=== PATIENT | male | born 1955 | race Caucasian/White ===

== ENCOUNTER 2018-05-05 05:59 | Emergency (ER) | payer BC ==
--- NOTE | 2018-05-05 07:17 | ER Document Report ---
ED General - General Chief Complaint: Probable Seizure Stated Complaint: CHEST PAIN Time Seen by Provider: 05/05/18 06:28 TRAVEL OUTSIDE OF THE [place] IN LAST 30 DAYS: No - HPI Patient complains to provider of: chest pain Onset: Other - This 62-year-old with complex past medical history that presents for evaluation of chest pain which he awoke from sleep with this morning around 4 AM, they subsequently called for EMS to transport him to the hospital, his notes that he did exert himself extensively yesterday attempting to clear brush from his yard. They deny any diaphoresis, nausea, emesis, diarrhea, constipation dysuria recent illnesses. No history of MA in the past. - Related Data Allergies/Adverse Reactions: aspirin [Aspirin] Allergy (Verified 10/13/15 12:31) Sulfa (Sulfonamide Antibiotics) Allergy (Verified 10/13/15 12:31) Past Medical History - General Information source: Patient, Parent - Social History Smoking Status: Unknown if Ever Smoked Family History: Reviewed & Not Pertinent Patient has suicidal ideation: No Patient has homicidal ideation: No - Past Medical History Cardiac Medical History: Reports: Hx Hypercholesterolemia, Hx Hypertension Pulmonary Medical History: Reports: Hx Asthma, Hx COPD Endocrine Medical History: Reports: Hx Hypothyroidism Renal/ Medical History: Denies: Hx Peritoneal Dialysis GI Medical History: Reports: Hx Ulcer - chronic back pain Psychiatric Medical History: Reports: Hx Depression Past Surgical History: Reports: Hx Gastric Bypass Surgery, Hx Orthopedic Surgery - Cervical fusion, knee surgery Review of Systems - Review of Systems -: Yes All other systems reviewed and negative Physical Exam - Vital signs Vitals: Temp Pulse Resp BP Pulse Ox 98.2 F 77 17 143/78 H 98 05/05/18 05:59 05/05/18 05:59 05/05/18 05:59 05/05/18 05:59 05/05/18 05:59 - General General appearance: Appears well In distress: None - HEENT Head: Normocephalic Eyes: Normal Conjunctiva: Normal Cornea: Normal Extraocular movements intact: Yes Eyelashes: Normal Pupils: PERRL - Respiratory Respiratory status: No respiratory distress Chest status: Tender - Tender along the right side of the chest Breath sounds: Normal Chest palpation: Normal - Cardiovascular Rhythm: Regular Heart sounds: Normal auscultation Murmur: No - Abdominal Inspection: Normal Distension: No distension Tenderness: Nontender - Back Back: Normal - Extremities General upper extremity: Normal inspection, Nontender, Normal ROM, Normal strength General lower extremity: Normal inspection, Nontender, Normal ROM, Normal strength - Neurological Neuro grossly intact: Yes Cognition: Normal Orientation: AAOx4 [place] Coma Scale Eye Opening: Spontaneous [place] Coma Scale Verbal: Oriented Adnrews Coma Scale Motor: Obeys Commands [place] Coma Scale Total: 15 Speech: Normal Cranial nerves: Normal Cerebellar coordination: Normal Motor strength normal: LUE, RUE, LLE, RLE - Psychological Associated symptoms: Normal affect Course - Re-evaluation Re-evalutation: 05/05/18 07:16 This 62-year-old man presents for atypical chest pain, at this time he is somewhat somnolent as a result of having received Versed IM from EMS personnel as a result of a pseudoseizure which he suffered while on route. His story is atypical, he has limited risk factors, his EKG is unchanged from previous, will obtain troponins 2 placed on monitoring tech obtain chest x-ray and basic labs. Plan for reassessment as necessary. Patient with 2 negative troponins, chest pain-free at this time, responded well without any intervention. We will plan for this patient undergo discharge with return precautions and encouraged follow-up with his primary care physician as currently this gives him a heart score of 2. Patient be discharged with return precautions. - Vital Signs Vital signs: Temp Pulse Resp BP Pulse Ox 98.2 F 77 21 H 123/88 H 93 05/05/18 05:59 05/05/18 05:59 05/05/18 13:00 05/05/18 12:02 05/05/18 13:00 - Laboratory Result Diagrams: 05/05/18 10:29 05/05/18 08:30 Laboratory results interpreted by me: 05/05/18 08:30 Direct Bilirubin 0.5 H Discharge - Discharge Clinical Impression: Chest pain Qualifiers: Chest pain type: unspecified Qualified Code(s): R07.9 - Chest pain, unspecified Condition: Good Disposition: HOME, SELF-CARE Instructions: Chest Pain of Unclear Cause ([facility]), Seizure, Known Epileptic ([facility]) Additional Instructions: You were seen today in the emergency department for your chest pain. You had evaluation including a chest x-ray, blood tests, none of which showed why you are having chest pain. Your EKG was the same as previously. 2 markers for heart damage were obtained neither of which showed any damage to your heart. If you have worsening chest pain or shortness of breath you should return to the emergency room as it may be a more serious condition you should otherwise call your primary physician for a follow-up this week. Referrals: NESTOR BAUTISTA PA [NO LOCAL MD] - Follow up as needed
--- NOTE | 2018-05-05 08:02 | RADIOLOGY REPORT (SQ) ---
EXAM DESCRIPTION: X-ray two view chest CLINICAL HISTORY: 62 years Male, chest pain COMPARISON: Two-view chest performed on 10/13/2015. TECHNIQUE: PA and Lateral views of the chest performed on 05/05/2018 at 7:45 AM FINDINGS: The lungs are well expanded and are clear. The costophrenic sulci are clear. There is no evidence of a pneumothorax. The cardiac silhouette is normal in size. The mediastinal contours are normal. No acute osseous abnormalities are identified. There are remote postsurgical changes of the lower cervical spine. No focal soft tissue abnormalities are identified. IMPRESSION: No evidence of acute intrathoracic disease. No significant change since the prior study.
[2018-05-05 09:34] LABS: ALANINE AMINOTRANSFERASE 29 U/L (21-72); ALBUMIN 3.9 g/dL (3.5-5.0); ALKALINE PHOSPHATASE 78 U/L (38-126); ANION GAP 9 (5-19); ASPARTATE AMINO TRANSFERASE 34 U/L (17-59); BILIRUBIN,DIRECT 0.5 mg/dL (0.0-0.4); BILIRUBIN,TOTAL 0.7 mg/dL (0.2-1.3); BLOOD UREA NITROGEN 17 mg/dL (7-20); CARBON DIOXIDE 25 mmol/L (22-30); CHLORIDE 105 mmol/L (98-107); CREATINE KINASE 156 U/L (55-170); GLUCOSE 106 mg/dL (75-110); POTASSIUM 3.9 mmol/L (3.6-5.0); SODIUM 138.8 mmol/L (137-145); TOTAL PROTEIN 6.8 g/dL (6.3-8.2)
[2018-05-05 09:45] LABS: TROPONIN I < 0.012 ng/mL
[2018-05-05 10:45] LABS: ABSOLUTE EOSINOPHILS # (AUTO) 0.1 10^3/uL (0.0-0.6); ABSOLUTE LYMPHOCYTES (AUTO) 1.7 10^3/uL (0.5-4.7); ABSOLUTE MONOCYTES (AUTO) 0.6 10^3/uL (0.1-1.4); ABSOLUTE NEUT (AUTO) 3.2 10^3/uL (1.7-8.2); BASOPHILS % (AUTO) 0.5 % (0-2); EOSINOPHILS % (AUTO) 1.5 % (0-6); HEMATOCRIT 39.4 % (37.9-51.0); HEMOGLOBIN 13.5 g/dL (13.5-17.0); MEAN CORPUSCULAR HEMOGLOBIN 29.8 pg (27.0-33.4); MEAN CORPUSCULAR HGB CONC 34.3 g/dL (32.0-36.0); MEAN CORPUSCULAR VOLUME 87 fl (80-97); MONOCYTES % (AUTO) 10.1 % (3-13); RED BLOOD COUNT 4.53 10^6/uL (4.35-5.55); RED CELL DISTRIBUTION WIDTH 12.5 % (11.5-14.0); SEGMENTED NEUTROPHILS % (AUTO) 57.9 % (42-78); TOTAL CELLS COUNTED % (AUTO) 100 %; WHITE BLOOD COUNT 5.5 10^3/uL (4.0-10.5)
[2018-05-05 10:46] LABS: PLATELET COUNT 208 10^3/uL (150-450)
[2018-05-05 14:00] VITALS: BP 123/88
--- NOTE | 2018-05-05 15:31 | EKG REPORT ---
SEVERITY:- BORDERLINE ECG - SINUS RHYTHM BORDERLINE T ABNORMALITIES, ANTERIOR LEADS : Confirmed by: Virginia Watson MD 05-May-2018 15:30:22
== END 2018-05-05 14:00 | disposition home or self-care (01) ==
LOC: ER 05:59
DX: R07.89 Other chest pain (principal); F44.5 Conversion disorder with seizures or convulsions; I10 Essential (primary) hypertension; J44.9 Chronic obstructive pulmonary disease, unspecified; Z88.6 Allergy status to analgesic agent; Z88.2 Allergy status to sulfonamides; Z98.84 Bariatric surgery status
CPT/HCPCS: 36415; 71046; 80053; 82550; 82553; 84484; 85025; 93005; 93010; 99285

== ENCOUNTER → 2019-09-08 | Day surgery (SDC) | payer OTHER, BC ==
[~2019-09-08] MED LIST: CHONDR SU A NA/HYALUR INTRAOC KIT (SURGICARE) ONE; EPINEPHRINE INJ/PF 1 MG/1 ML AMPULE ONE; FENTANYL CITRATE INJ/PF 100 MCG/2 ML AMPUL ONE; KETOROLAC TROMETHAMINE 0.45% 4 DROP/0.4 ML DROPERETTE OS PRN; LIDOCAINE 1%/PHENYLEPHRINE 1.5% 1 ML VIAL ONE; LIDOCAINE 2% INJ-PF (100 MG/5 ML) SYRINGE ONE; MIDAZOLAM 2 MG/2 ML INJ ONE; ONDANSETRON HCL INJ/PF 4 MG/2 ML SDV ONE
[2019-09-08] MEDS: CYCLOPENTOLATE 0.2%/PHENYLEPHRINE 1% OPH SOLN 2 ML OS PRN ×3 (08:42→09:03)
[2019-09-08] MEDS: TETRACAINE HCL 0.5% OPH SOLN 4 ML OS PRN ×3 (08:42→09:28)
[2019-09-08] MEDS: BESIFLOXACIN HCL 0.6% OPH SUSP 5 ML BOTTLE OS PRN ×4 (08:42→09:50)
[2019-09-08] MEDS: TROPICAMIDE 1% OPH SOLN 15 ML OS PRN ×3 (08:42→09:03)
[2019-09-08] MEDS: DORZOLAMIDE HCL 2%/TIMOLOL MALEAT 0.5% OPH SOLN 10 ML OS PRN ×2 (09:50)
--- NOTE | 2019-09-08 15:07 | Operative Report ---
Operative Report-[facility] Operative Report: DATE OF SURGERY: September 08, 2019 PREOPERATIVE DIAGNOSIS: NUCLEAR CATARACT, LEFT EYE. POSTOPERATIVE DIAGNOSIS: NUCLEAR CATARACT, LEFT EYE. PROCEDURE PERFORMED: PHACOEMULSIFICATION WITH POSTERIOR CHAMBER INTRAOCULAR LENS IMPLANT, LEFT EYE. SURGEON: Car Alaniz DO MEDICATIONS AND ANESTHESIA: Versed: IV Versed Tetracaine drops: 1 to 2 drops given as needed COMPLICATION: [None] INDICATIONS FOR SURGERY: Medical necessity: Best corrected visual acuity worse than 20/40 secondary to cataracts with impairment of ability to carry out needs or desired activities, blurred vision, visual distortion, reduced contrast sensitivity and/or glare with association functional impairment and supporting documentation/testing, and cataracts causing symptomatic impairment of visual functions not corrected with tolerable changes in glasses or contact lenses interfering with activities of daily life. PROCEDURE: Consent: The risks, benefits and alternatives of this procedures was discussed with the patient. The patient read and signed the consent forms, was identified and was seated in the exam chair. IOL: MX 60 E IOL Diopters: 17.0 Phacoemulsification with posterior chamber intraocular lens implant: The face was prepped with 5% povidone iodine solution, and a few drops of 5% povidone iodine solution was instilled into the inferior fornix. A non-fenestrated drape was placed over the eye and the lids were parted with the speculum. A paracentesis was made with a 15 degree blade, and 1% lidocaine MPF followed by viscoelastic was injected into the anterior chamber. A 2.4 mm metal micro- keratome was used to create a temporal clear corneal incision. A circular anterior capsulorrhexis was created, followed by hydro-dissection and hydro- delineation. The phacoemulsification hand piece was inserted and the nucleus was removed with the Phaco chop technique. The irrigation-aspiration hand piece was used to remove the residual cortex, and vacuum the posterior capsule. The capsular bag was inflated and viscoelastic and the above-mentioned IOL was injected into the eye with care to insert both leaning and trailing haptics in the capsular bag. The irrigation/aspiration hand piece was reinserted to remove residual viscoelastic from the capsular bag and anterior chamber. The corneal incision was hydrated, and anterior chamber was inflated with sterile BSS via the paracentesis site, and found to be watertight. Postop medication:1 drop of prednisolone into operative by followed by 1 drop of Cosopt into operative eye followed by 1 drop of Besivance intraoperative by Other: []
== END ==
LOC: SC 07:55
PROVIDERS: ATTEND Ophthalmology
DX: H25.12 Age-related nuclear cataract, left eye (principal); H40.1123 Primary open-angle glaucoma, left eye, severe stage; J45.909 Unspecified asthma, uncomplicated; I10 Essential (primary) hypertension; E03.9 Hypothyroidism, unspecified; G40.909 Epilepsy, unspecified, not intractable, without status epilepticus; Z79.51 Long term (current) use of inhaled steroids; Z79.899 Other long term (current) drug therapy; K21.9 Gastro-esophageal reflux disease without esophagitis; E66.9 Obesity, unspecified; Z88.2 Allergy status to sulfonamides; G47.30 Sleep apnea, unspecified
CPT/HCPCS: 66984; V2632; J2250; J3490 ×2; J0171; J3010; J2001; J2405; J2370; 142

== ENCOUNTER 2019-09-22 09:13 | Day surgery (SDC) | payer OTHER, BC ==
[~2019-09-22 09:13] MED LIST changes: -CHONDR SU A NA/HYALUR INTRAOC KIT (SURGICARE) ONE; +DORZOLAMIDE HCL 2%/TIMOLOL MALEAT 0.5% OPH SOLN 10 ML OD PRN; -EPINEPHRINE INJ/PF 1 MG/1 ML AMPULE ONE; -FENTANYL CITRATE INJ/PF 100 MCG/2 ML AMPUL ONE; +KETOROLAC TROMETHAMINE 0.45% 4 DROP/0.4 ML DROPERETTE OD PRN; -KETOROLAC TROMETHAMINE 0.45% 4 DROP/0.4 ML DROPERETTE OS PRN; -LIDOCAINE 1%/PHENYLEPHRINE 1.5% 1 ML VIAL ONE; -LIDOCAINE 2% INJ-PF (100 MG/5 ML) SYRINGE ONE; -MIDAZOLAM 2 MG/2 ML INJ ONE; -ONDANSETRON HCL INJ/PF 4 MG/2 ML SDV ONE
[2019-09-22] MEDS ORDERED: ONDANSETRON HCL INJ/PF 4 MG/2 ML SDV ONE (10:08)
[2019-09-22] MEDS ORDERED: MIDAZOLAM 2 MG/2 ML INJ ONE (10:08)
[2019-09-22] MEDS ORDERED: FENTANYL CITRATE INJ/PF 100 MCG/2 ML AMPUL ONE (10:08)
[2019-09-22] MEDS: BESIFLOXACIN HCL 0.6% OPH SUSP 5 ML BOTTLE OD PRN ×3 (10:30→11:44)
[2019-09-22] MEDS: CYCLOPENTOLATE 0.2%/PHENYLEPHRINE 1% OPH SOLN 2 ML OD PRN ×3 (10:30→10:50)
[2019-09-22] MEDS: TROPICAMIDE 1% OPH SOLN 15 ML OD PRN ×3 (10:30→10:50)
[2019-09-22] MEDS: TETRACAINE HCL 0.5% OPH SOLN 4 ML OD PRN ×4 (10:31→11:16)
[2019-09-22] MEDS: EPINEPHRINE INJ/PF 1 MG/1 ML AMPULE ONE ×2 (11:27)
[2019-09-22] MEDS: CHONDR SU A NA/HYALUR INTRAOC KIT (SURGICARE) ONE ×2 (11:27)
[2019-09-22] MEDS: LIDOCAINE 1%/PHENYLEPHRINE 1.5% 1 ML VIAL ONE ×2 (11:27)
[2019-09-22] MEDS ORDERED: CHONDR SU A NA/HYALUR SOD 0.5 ML DISP.SYRIN ONE (15:13)
--- NOTE | 2019-09-22 15:26 | Operative Report ---
Operative Report-[facility] Operative Report: See scanned report
== END 2019-09-22 12:40 | disposition home or self-care (01) ==
LOC: SC 09:13
PROVIDERS: ATTEND Ophthalmology
DX: H25.11 Age-related nuclear cataract, right eye (principal); H40.1111 Primary open-angle glaucoma, right eye, mild stage; Z98.42 Cataract extraction status, left eye; Z79.51 Long term (current) use of inhaled steroids; Z79.899 Other long term (current) drug therapy; J45.909 Unspecified asthma, uncomplicated; I10 Essential (primary) hypertension; E03.9 Hypothyroidism, unspecified; G40.909 Epilepsy, unspecified, not intractable, without status epilepticus
CPT/HCPCS: 0191T; 66984; 142; C1783; J0171; J2250; J2405; J3010; J3490; V2632

== ENCOUNTER 2020-02-03 11:21 | Emergency (ER) | payer OTHER, BC ==
--- NOTE | 2020-02-03 11:50 | ER Document Report ---
ED Medical Screen (RME) - General Chief Complaint: Flank Pain Stated Complaint: FLANK PAIN Time Seen by Provider: 02/03/20 11:43 Primary Care Provider: KEMI COOMBS NP [Primary Care Provider] - Follow up as needed Notes: Patient is a 64-year-old male who presents to the emergency department with a chief complaint of right lateral mid abdominal pain. Patient states that his symptoms started yesterday. States that he took his home pain medication at home, which helped a little bit, but states that it continues to hurt. Patient also notes that he fell out of bed 4 days ago. States that his bed is rather high. He also hit his head and ended up vomiting after he hitting his head. Exam: Tender mid lateral abdomen. Exam limited due to patient sitting position. I have greeted and performed a rapid initial assessment of this patient. A comprehensive ED assessment and evaluation of the patient, analysis of test results and completion of medical decision making process will be conducted by an additional ED providers. TRAVEL OUTSIDE OF THE [place] IN LAST 30 DAYS: No - Related Data Allergies/Adverse Reactions: aspirin [Aspirin] Allergy (Verified 09/22/19 10:36) Sulfa (Sulfonamide Antibiotics) Allergy (Verified 09/22/19 10:36) Past Medical History - Past Medical History Cardiac Medical History: Reports: Hx Hypercholesterolemia, Hx Hypertension Denies: Hx Heart Attack Pulmonary Medical History: Reports: Hx Asthma, Hx COPD Neurological Medical History: Reports: Hx Seizures. Denies: Hx Cerebrovascular Accident Endocrine Medical History: Reports: Hx Hypothyroidism Renal/ Medical History: Denies: Hx Peritoneal Dialysis GI Medical History: Reports: Hx Hiatal Hernia, Hx Ulcer - BLEEDING ULCER . Denies: Hx Hepatitis Psychiatric Medical History: Reports: Hx Depression Infectious Medical History: Denies: Hx Hepatitis Past Surgical History: Reports: Hx Gastric Bypass Surgery, Hx Orthopedic Surgery - Cervical fusion, knee surgery. Denies: Hx Open Heart Surgery, Hx Pacemaker Physical Exam - Vital signs Vitals: Temp Pulse Resp BP Pulse Ox 97.8 F 87 22 H 148/86 H 96 02/03/20 11:28 02/03/20 11:28 02/03/20 11:28 02/03/20 11:28 02/03/20 11:28 Course - Vital Signs Vital signs: Temp Pulse Resp BP Pulse Ox 97.8 F 87 22 H 148/86 H 96 02/03/20 11:28 02/03/20 11:28 02/03/20 11:28 02/03/20 11:28 02/03/20 11:28 Doctor's Discharge - Discharge Referrals: KEMI COOMBS [employer] [Primary Care Provider] - Follow up as needed
[2020-02-03 12:21] LABS: ABSOLUTE EOSINOPHILS # (AUTO) 0.1 10^3/uL (0.0-0.6); ABSOLUTE LYMPHOCYTES (AUTO) 2.5 10^3/uL (0.5-4.7); ABSOLUTE NEUT (AUTO) 5.3 10^3/uL (1.7-8.2); BASOPHILS % (AUTO) 0.4 % (0-2); EOSINOPHILS % (AUTO) 1.1 % (0-6); HEMATOCRIT 40.1 % (37.9-51.0); HEMOGLOBIN 14.1 g/dL (13.5-17.0); LYMPHOCYTES % (AUTO) 27.7 % (13-45); MEAN CORPUSCULAR HEMOGLOBIN 30.6 pg (27.0-33.4); MEAN CORPUSCULAR HGB CONC 35.1 g/dL (32.0-36.0); MEAN CORPUSCULAR VOLUME 87 fl (80-97); PLATELET COUNT 218 10^3/uL (150-450); RED BLOOD COUNT 4.59 10^6/uL (4.35-5.55); RED CELL DISTRIBUTION WIDTH 13.4 % (11.5-14.0); SEGMENTED NEUTROPHILS % (AUTO) 59.8 % (42-78); TOTAL CELLS COUNTED % (AUTO) 100 %; WHITE BLOOD COUNT 8.9 10^3/uL (4.0-10.5)
[2020-02-03 12:40] LABS: ALBUMIN 4.5 g/dL (3.5-5.0); ALKALINE PHOSPHATASE 128 U/L (38-126); ANION GAP 8 (5-19); ASPARTATE AMINO TRANSFERASE 127 U/L (17-59); BILIRUBIN,DIRECT 0.1 mg/dL (0.0-0.4); BILIRUBIN,TOTAL 0.5 mg/dL (0.2-1.3); BLOOD UREA NITROGEN 12 mg/dL (7-20); CALCIUM 9.7 mg/dL (8.4-10.2); CARBON DIOXIDE 30 mmol/L (22-30); CHLORIDE 96 mmol/L (98-107); GLUCOSE 98 mg/dL (75-110); POTASSIUM 4.1 mmol/L (3.6-5.0); TOTAL PROTEIN 7.7 g/dL (6.3-8.2)
[2020-02-03 13:25] LABS: APPEARANCE,URINE CLOUDY; BILIRUBIN,URINE NEGATIVE (NEGATIVE); CALCIUM OXALATE CRYSTALS,URINE TOO NUMEROUS TO CNT /HPF; GLUCOSE, URINE NEGATIVE (NEGATIVE); KETONES,URINE TRACE mg/dL (NEGATIVE); LEUKOCYTE ESTERASE,URINE NEGATIVE (NEGATIVE); NITRITE,URINE NEGATIVE (NEGATIVE); PROTEIN,URINE NEGATIVE (NEGATIVE); URINE SPECIFIC GRAVITY 1.019
[2020-02-03 13:26] LABS: COLOR,URINE DARK YELLOW
--- NOTE | 2020-02-03 13:42 | RADIOLOGY REPORT (SQ) ---
EXAM DESCRIPTION: CT HEAD WITHOUT IMAGES COMPLETED DATE/TIME: 02/03/2020 1:30 pm REASON FOR STUDY: fall out of bed, then vomited COMPARISON: None. TECHNIQUE: Axial images acquired through the brain without intravenous contrast. Images reviewed wi th bone, brain and subdural windows. Additional sagittal and coronal reconstructions were generated. Images stored on PACS. All CT scanners at this facility use dose modulation, iterative reconstruction, and/or weight based d osing when appropriate to reduce radiation dose to as low as reasonably achievable (ALARA). [facility]: Dose Right [facility]: CareDose [facility]: Dose Right [facility]: Teradose 4D [facility]: [email or web address] RADIATION DOSE: CT Rad equipment meets quality standard of care and radiation dose reduction techniq ues were employed. CTDIvol: 53.2 mGy. DLP: 1070 mGy-cm. mGy. LIMITATIONS: None. FINDINGS: VENTRICLES: Normal size and contour. CEREBRUM: No masses. No hemorrhage. No midline shift. No evidence for acute infarction. Few scatte red areas of low density in the white matter most likely chronic small vessel ischemic changes. CEREBELLUM: No masses. No hemorrhage. No alteration of density. No evidence for acute infarction. EXTRAAXIAL SPACES: No fluid collections. No masses. ORBITS AND GLOBE: No intra- or extraconal masses. Normal contour of globe without masses. CALVARIUM: No fracture. PARANASAL SINUSES: No fluid or mucosal thickening. SOFT TISSUES: No mass or hematoma. OTHER: No other significant finding. IMPRESSION: MILD CHRONIC MICROVASCULAR ISCHEMIA. NO ACUTE IMAGING FINDINGS IN THE BRAIN. EVIDENCE OF ACUTE STROKE: NO. COMMENT: Quality ID # [id number]: Final reports with documentation of one or more dose reduction techniques (e.g., Automated exposure control, adjustment of the mA and/or kV according to patient size, use of iterative reconstruction technique) TECHNICAL DOCUMENTATION: JOB ID: [id number] 2010 [employer]- All Rights Reserved Reading location - IP/workstation name: [email or web address]
[2020-02-03] MEDS ORDERED: MORPHINE SULFATE 10 MG/ML INJ IV ONE (13:57)
[2020-02-03] MEDS ORDERED: ONDANSETRON HCL INJ/PF 4 MG/2 ML SDV IV ONE (13:57)
--- NOTE | 2020-02-03 13:57 | ER Document Report ---
ED GI/ - General Chief Complaint: Flank Pain Stated Complaint: Time Seen by Provider: 02/03/20 11:43 Primary Care Provider: KEMI COOMBS NP [Primary Care Provider] - Follow up as needed Mode of Arrival: Ambulatory Information source: Patient Notes: 64-year-old male past medical history significant for hypertension, hyperlipidemia, hypothyroidism, chronic back and neck pain. Presents to the emergency room complaining of right flank pain that radiates to the right lower quadrant that started yesterday. States it was constant yesterday today is more intermittent. Describes it as a sharp stabbing pain worse with movement. Denies nausea, vomiting, no fevers, no urinary symptoms. States is taking his chronic pain medications which consist of Percocet and oxycodone with minimal relief. Denies any history of kidney stones TRAVEL OUTSIDE OF THE [place] IN LAST 30 DAYS: No - Related Data Allergies/Adverse Reactions: aspirin [Aspirin] Allergy (Verified 02/03/20 11:50) Sulfa (Sulfonamide Antibiotics) Allergy (Verified 02/03/20 11:50) Past Medical History - General Information source: Patient - Social History Smoking Status: Never Smoker Chew tobacco use (# tins/day): No Frequency of alcohol use: None Drug Abuse: None Family History: Reviewed & Not Pertinent Patient has homicidal ideation: No - Past Medical History Cardiac Medical History: Reports: Hx Hypercholesterolemia, Hx Hypertension Denies: Hx Heart Attack Pulmonary Medical History: Reports: Hx Asthma, Hx COPD Neurological Medical History: Reports: Hx Seizures. Denies: Hx Cerebrovascular Accident Endocrine Medical History: Reports: Hx Hypothyroidism Renal/ Medical History: Denies: Hx Peritoneal Dialysis GI Medical History: Reports: Hx Hiatal Hernia, Hx Ulcer - BLEEDING ULCER . Denies: Hx Hepatitis Psychiatric Medical History: Reports: Hx Depression Infectious Medical History: Denies: Hx Hepatitis Past Surgical History: Reports: Hx Gastric Bypass Surgery, Hx Neurologic Surgery - neck fusion, Hx Orthopedic Surgery - Cervical fusion, knee surgery. Denies: Hx Open Heart Surgery, Hx Pacemaker Review of Systems - Review of Systems Constitutional: No symptoms reported Cardiovascular: No symptoms reported Respiratory: No symptoms reported Gastrointestinal: Abdominal pain. denies: Diarrhea, Nausea, Vomiting Genitourinary: No symptoms reported Musculoskeletal: Back pain Skin: No symptoms reported Neurological/Psychological: No symptoms reported -: Yes All other systems reviewed and negative Physical Exam - Vital signs Vitals: Temp Pulse Resp BP Pulse Ox 97.8 F 87 22 H 148/86 H 96 02/03/20 11:28 02/03/20 11:28 02/03/20 11:28 02/03/20 11:28 02/03/20 11:28 - General General appearance: Appears well, Alert In distress: Mild - Respiratory Respiratory status: No respiratory distress Chest status: Nontender Breath sounds: Normal Chest palpation: Normal - Cardiovascular Rhythm: Regular Heart sounds: Normal auscultation Murmur: No - Abdominal Inspection: Normal Distension: No distension Bowel sounds: Normal Tenderness: Tender - Mild tenderness on palpation right lateral abdomen. No guarding, no rebound.. No: Bassett's sign, Guarding, Rebound Organomegaly: No organomegaly - Back Back: Tender - Mild tenderness noted to the lower lumbar region. Nontender over the vertebral spines.. No: CVA tenderness, Vertebra tenderness - Neurological Neuro grossly intact: Yes Cognition: Normal Orientation: AAOx4 [place] Coma Scale Eye Opening: Spontaneous [place] Coma Scale Verbal: Oriented [place] Coma Scale Motor: Obeys Commands [place] Coma Scale Total: 15 Speech: Normal Motor strength normal: LUE, RUE, LLE, RLE Sensory: Normal - Skin Skin Temperature: Warm Skin Moisture: Dry Skin Color: Normal Course - Re-evaluation Re-evalutation: 02/03/20 15:17 Patient is resting comfortably with decreased pain. Having some muscle spasms. Will add Flexeril to his current medication regimens. Reviewed all test results with patient. Counseled need to follow-up outpatient with his primary care physician for further evaluation. Patient is aware that he is CAT scan did not reveal any infections, no stones, no obstructions. No concerning findings. Urine positive for oxalate crystals however there were no kidney stones noted on the CT. He is to continue with his current home medications. Patient was given strict return to the emergency room guidelines. Return for any new or worsening symptoms. All questions were answered. Patient verbalized understanding and agrees with plan of care. 02/03/20 15:33 - Vital Signs Vital signs: Temp Pulse Resp BP Pulse Ox 97.8 F 84 16 140/72 H 96 02/03/20 11:39 02/03/20 15:57 02/03/20 15:57 02/03/20 15:57 02/03/20 15:57 - Laboratory Result Diagrams: 02/03/20 12:00 02/03/20 12:00 Laboratory results interpreted by me: 02/03/20 02/03/20 12:00 13:00 Sodium 133.7 L Chloride 96 L AST 127 H ALT 64 H Alkaline Phosphatase 128 H Urine Ketones TRACE H Urine Urobilinogen 2.0 H Urine Ascorbic Acid 40 H - Diagnostic Test Radiology reviewed: Reports reviewed Discharge - Discharge Clinical Impression: Right flank pain, Abdominal pain of unknown etiology, Muscle spasm Condition: Stable Disposition: HOME, SELF-CARE Instructions: Abdominal Pain ([facility]), Flank Pain ([facility]) Additional Instructions: Continue with current home medications. Call your primary care physician for an outpatient follow-up appointment. Return for any new or worsening symptoms. Prescriptions: Cyclobenzaprine HCl [Flexeril 10 mg Tablet] 10 mg PO TIDP PRN #15 tab PRN Reason: Referrals: KEMI COOMBS NP [Primary Care Provider] - Follow up as needed
--- NOTE | 2020-02-03 14:19 | RADIOLOGY REPORT (SQ) ---
EXAM DESCRIPTION: CT ABD/PELVIS WITH IV ONLY IMAGES COMPLETED DATE/TIME: 02/03/2020 1:36 pm REASON FOR STUDY: abdominal pain; fall out of bed COMPARISON: None. TECHNIQUE: CT scan of the abdomen and pelvis performed using helical scanning technique with dynamic intravenous contrast injection. No oral contrast. Images reviewed with lung, soft tissue, and bone windows. Reconstructed coronal and sagittal MPR images reviewed. Delayed images for evaluation of the urinary system also acquired. All images stored on PACS. All CT scanners at this facility use dose modulation, iterative reconstruction, and/or weight based d osing when appropriate to reduce radiation dose to as low as reasonably achievable (ALARA). [facility]: Dose Right [facility]: CareDose [facility]: Dose Right [facility]: Teradose 4D [facility]: [employer] by [employer] CONTRAST TYPE AND DOSE: 100 cc Omnipaque 350- low osmolar. RENAL FUNCTION: BUN 12 creatinine 0.95 RADIATION DOSE: CT Rad equipment meets quality standard of care and radiation dose reduction techniq ues were employed. CTDIvol: 9.6 - 14.4 mGy. DLP: 1476 mGy-cm.. LIMITATIONS: None. FINDINGS: LOWER CHEST: No significant findings. No nodules or infiltrates. LIVER: Normal size. No masses. No dilated ducts. SPLEEN: Normal size. No focal lesions. PANCREAS: No masses. No significant calcifications. No adjacent inflammation or peripancreatic fluid collections. Pancreatic duct not dilated. GALLBLADDER: Surgically absent. ADRENAL GLANDS: No significant masses or asymmetry. RIGHT KIDNEY AND URETER: No solid masses. No significant calcifications. No hydronephrosis or hyd roureter. LEFT KIDNEY AND URETER: No solid masses. No significant calcifications. No hydronephrosis or hydr oureter. AORTA AND VESSELS: No aneurysm. No dissection. Renal arteries, SMA, celiac without stenosis. RETROPERITONEUM: No retroperitoneal adenopathy, hemorrhage or masses. BOWEL AND PERITONEAL CAVITY: Gastric sleeve surgery. No masses or inflammatory changes. No free flui d or peritoneal masses. APPENDIX: Normal. PELVIS: No mass. No free fluid. Normal bladder. ABDOMINAL WALL: No masses. No hernias. BONES: No significant or acute findings. OTHER: No other significant finding. IMPRESSION: NO SIGNIFICANT OR ACUTE FINDING IN THE ABDOMEN OR PELVIS ON CT SCAN WITH IV CONTRAST. TECHNICAL DOCUMENTATION: JOB ID: [id number] Quality ID # [id number]: Final reports with documentation of one or more dose reduction techniques (e.g., Au tomated exposure control, adjustment of the mA and/or kV according to patient size, use of iterative reconstruction technique) 2010 [employer]- All Rights Reserved Reading location - IP/workstation name: [email or web address]
[2020-02-03] MEDS ORDERED: CYCLOBENZAPRINE HCL 10 MG TABLET PO ONE (15:32)
[2020-02-03 15:58] VITALS: BP 140/72
== END 2020-02-03 15:58 | disposition home or self-care (01) ==
LOC: ER 11:21
DX: R10.9 Unspecified abdominal pain (principal); W06.XXXA Fall from bed, initial encounter; M62.838 Other muscle spasm; M54.9 Dorsalgia, unspecified; R10.819 Abdominal tenderness, unspecified site; I10 Essential (primary) hypertension; J44.9 Chronic obstructive pulmonary disease, unspecified; G89.29 Other chronic pain; Z79.891 Long term (current) use of opiate analgesic; Z98.84 Bariatric surgery status; Z88.8 Allergy status to other drugs, medicaments and biological substances; Z88.2 Allergy status to sulfonamides
CPT/HCPCS: 99284; 96374; 96375; 36415; 85025; 80053; 81001; 70450; 74177; J2270; J2405